=== PATIENT | female | born 1955 | race Caucasian/White ===

== ENCOUNTER 2016-10-02 18:54 | Emergency (ER) | payer BC ==
[2016-10-02] VITALS (7 sets, daily range): BP systolic 126–135; BP diastolic 71–78; PULSE 86–172; RESP 20; TEMP 97.6; O2SAT 95–100
[~2016-10-02] VITALS: Ht 175.3 cm; Wt 86.0 kg
[~2016-10-02 18:54] MED LIST: ASPI81TA82 PO; CALA180T PO; OMEG1000 PO; SIMV10 PO; SYNT100T PO; TIOT18I INH
[2016-10-02] MEDS ORDERED: SODIUM CHLORIDE 0.9% FLUSH 10 ML FLUSH IVF PRN (19:00)
[2016-10-02] MEDS ORDERED: ADENOSINE IV SOLN 3 MG/ML 2 ML VIAL ONE (19:02)
[2016-10-02] MEDS ORDERED: ONDANSETRON HCL 4 MG/2 ML VIAL ONE (19:04)
[2016-10-02] MEDS ORDERED: ADENOSINE IV SOLN 3 MG/ML 2 ML VIAL IV PUSH ONE (19:15)
[2016-10-02] MEDS ORDERED: ONDANSETRON HCL 4 MG/2 ML VIAL IV PUSH ONE (19:15)
[2016-10-02 19:25] LABS: AUTOMATED NEUTROPHIL # 8.4 TH/MM3 (1.8-7.7); BASOPHIL # 0.2 TH/MM3 (0-0.2); BASOPHIL % 1.2 % (0.0-2.0); EOSINOPHIL # 0.2 TH/MM3 (0-0.4); EOSINOPHIL % 1.4 % (0.0-4.0); HEMATOCRIT 39.4 % (35.0-46.0); LYMPH % 27.5 % (9.0-44.0); LYMPHOCYTE # 3.7 TH/MM3 (1.0-4.8); MEAN CELL VOLUME 73.4 FL (80.0-100.0); MEAN CORPUSCULAR HGB CONC 32.7 % (32.0-36.0); NEUT % 62.9 % (16.0-70.0); PLATELET COUNT 425 TH/MM3 (150-450); RED BLOOD COUNT 5.37 MIL/MM3 (4.00-5.30); RED CELL DISTRIBUTION WIDTH 16.1 % (11.6-17.2); WHITE BLOOD COUNT 13.4 TH/MM3 (4.0-11.0)
[2016-10-02 19:32] LABS: HEMO FLAGS DIFF FINAL
[2016-10-02 19:33] LABS: CHLORIDE 102 MEQ/L (98-107); POTASSIUM 3.7 MEQ/L (3.5-5.1); SODIUM (NA) 137 MEQ/L (136-145)
[2016-10-02 19:36] LABS: ANION GAP 12 MEQ/L (5-15); BICARBONATE 23.4 MEQ/L (21.0-32.0); MAGNESIUM 1.9 MG/DL (1.5-2.5)
--- NOTE | 2016-10-02 19:36 | PD ---
HPI Chief Complaint: Cardiac Complaint Time Seen by Provider: 18:56 Travel History International Travel<30 days: No Contact w/Intl Traveler<30days: No History of Present Illness HPI This is a 60-year-old female presents emergency department for evaluation of tachycardia and generalized fatigue. Patient states she was working outside today and began having rapid heartbeat. She states she has a history of SVT ever since the late 90s. She denies any chest pain shortness of breath. She states she feels like her mouth is dry and she has not been hydrating adequately today. She states that she tried several maneuvers at home including bearing down which were unsuccessful. PFSH Past Medical History Heart Rhythm Problems: Yes (SVT'S - X5 ) High Cholesterol: Yes COPD: Yes Hypertension: Yes (BORDERLINE ) Respiratory: Yes (CHEST TUBES X 2) Thyroid Disease: Yes Menopausal: Yes Past Surgical History Thoracic Surgery: Yes (SPONTANEOUS PNEUMOTHORAX X 5) Tonsillectomy: Yes (CHILDHOOD) Social History Alcohol Use: No Tobacco Use: Yes (1/2 PPD) Substance Use: No Allergies-Medications (Allergen,Severity, Reaction): Coded Allergies: No Known Allergies (Verified , 10/02/16) Reported Meds & Prescriptions Reported Meds & Active Scripts Active Reported Verapamil SR (Verapamil HCl) 180 Mg Cap 180 Mg PO DAILY Spiriva Handihaler (Tiotropium Inh) 18 Mcg Cap 18 Mcg INH DAILY 1 capsule = 18 mcg Zocor (Simvastatin) 10 Mg Tab 10 Mg PO DAILY [facility] (Hepzibah 3 Fatty Euyfu-Tkiaxs-Llnzynyqjb) 250-2.5-0.5 Mg Cap 1 Cap PO BID Synthroid (Levothyroxine Sodium) 112 Mcg Tab 112 Mcg PO DAILY Aspirin 81 Mg Chew 81 Mg CHEW EVERY OTHER DAY Review of Systems Except as stated in HPI: all other systems reviewed are Neg Physical Exam Narrative GENERAL: Well-developed well-nourished in no apparent distress SKIN: Focused skin assessment warm/dry. HEAD: Atraumatic. Normocephalic. EYES: Pupils equal and round. No scleral icterus. No injection or drainage. ENT: No nasal bleeding or discharge. Mucous membranes pink and moist. NECK: Trachea midline. No JVD. CARDIOVASCULAR: Regular rhythm with tachycardia.. No murmur appreciated. 2+ bilateral equal pulses in all 4 extremities. RESPIRATORY: No accessory muscle use. Clear to auscultation. Breath sounds equal bilaterally. GASTROINTESTINAL: Abdomen soft, non-tender, nondistended. Hepatic and splenic margins not palpable. MUSCULOSKELETAL: No obvious deformities. No clubbing. No cyanosis. No edema. NEUROLOGICAL: Awake and alert. No obvious cranial nerve deficits. Motor grossly within normal limits. Normal speech. PSYCHIATRIC: Appropriate mood and affect; insight and judgment normal. Data Data Last Documented VS Vital Signs Date Time Temp Pulse Resp B/P Pulse Ox O2 Delivery O2 Flow Rate FiO2 10/02/16 20:45 84 18 135/71 98 10/02/16 20:15 Room Air 10/02/16 19:50 2 10/02/16 18:55 97.6 Orders Electrocardiogram (10/02/16 18:56) Ckmb (Isoenzyme) Profile (10/02/16 18:56) Complete Blood Count With Diff (10/02/16 18:56) Comprehensive Metabolic Panel (10/02/16 18:56) Magnesium (Mg) (10/02/16 18:56) Prothrombin Time / Inr (Pt) (10/02/16 18:56) Act Partial Throm Time (Ptt) (10/02/16 18:56) Troponin I (10/02/16 18:56) Ecg Monitoring (10/02/16 18:56) Iv Access Insert/Monitor (10/02/16 18:56) Oximetry (10/02/16 18:56) Oxygen Administration (10/02/16 18:56) Sodium Chloride 0.9% Flush (Ns Flush) (10/02/16 19:00) Adenosine Inj (Adenocard Inj) (10/02/16 19:02) Ondansetron Inj (Zofran Inj) (10/02/16 19:04) Ondansetron Inj (Zofran Inj) (10/02/16 19:15) Adenosine Inj (Adenocard Inj) (10/02/16 19:15) Sodium Chlor 0.9% 1000 Ml Inj (Ns 1000 M (10/02/16 20:00) Electrocardiogram (10/02/16 19:07) Labs Laboratory Tests Test 10/02/16 18:55 White Blood Count 13.4 TH/MM3 Red Blood Count 5.37 MIL/MM3 Hemoglobin 12.9 GM/DL Hematocrit 39.4 % Mean Corpuscular Volume 73.4 FL Mean Corpuscular Hemoglobin 24.0 PG Mean Corpuscular Hemoglobin 32.7 % Concent Red Cell Distribution Width 16.1 % Platelet Count 425 TH/MM3 Mean Platelet Volume 8.1 FL Neutrophils (%) (Auto) 62.9 % Lymphocytes (%) (Auto) 27.5 % Monocytes (%) (Auto) 7.0 % Eosinophils (%) (Auto) 1.4 % Basophils (%) (Auto) 1.2 % Neutrophils # (Auto) 8.4 TH/MM3 Lymphocytes # (Auto) 3.7 TH/MM3 Monocytes # (Auto) 0.9 TH/MM3 Eosinophils # (Auto) 0.2 TH/MM3 Basophils # (Auto) 0.2 TH/MM3 CBC Comment DIFF FINAL Differential Comment Prothrombin Time 10.7 SEC Prothromb Time International 1.0 RATIO Ratio Activated Partial 30.1 SEC Thromboplast Time Sodium Level 137 MEQ/L Potassium Level 3.7 MEQ/L Chloride Level 102 MEQ/L Carbon Dioxide Level 23.4 MEQ/L Anion Gap 12 MEQ/L Blood Urea Nitrogen 9 MG/DL Creatinine 1.00 MG/DL Estimat Glomerular Filtration 56 ML/MIN Rate Random Glucose 181 MG/DL Calcium Level 8.9 MG/DL Magnesium Level 1.9 MG/DL Total Bilirubin 0.4 MG/DL Aspartate Amino Transf 18 U/L (AST/SGOT) Alanine Aminotransferase 31 U/L (ALT/SGPT) Alkaline Phosphatase 86 U/L Total Creatine Kinase 100 U/L Troponin I LESS THAN 0.02 NG/ML Total Protein 7.8 GM/DL Albumin 4.1 GM/DL MDM Medical Decision Making Medical Screen Exam Complete: Yes Emergency Medical Condition: Yes Interpretation(s) 1899: EKG shows supraventricular tachycardia at a rate of 174, normal axis and normal R-wave progression. 1905: Attempting to run rhythm strip while patient being converted however repeat EKG was performed instead shows supraventricular tachycardia rate of 170. No other changes. EKG repeated in 1906, sinus tachycardia rate of 112, normal axis normal R-wave progression. Incomplete right bundle-branch block with an RSR prime pattern in V1 and V2. QRS duration is 99, intervals otherwise within normal limits. No concerning ST segment changes or T-wave changes. The borderline EKG. Comparison to 08/10/2014 shows no change. Differential Diagnosis Recurrent SVT, atrial fibrillation RVR, ventricular tachycardia, ACS seems unlikely, AMI unlikely, dehydration. Narrative Course Patient was roomed in the emergency department, found to be in SVT at a rate of 170-180. After IV was established the patient was given 6 of adenosine IV by rapid push. The patient had successful cardioversion to normal sinus rhythm, EKG which was repeated shows a nonischemic EKG. Patient will be observed in the emergency department basic labs. Basic labs are reassuring, patient was observed for some time in the emergency department and was feeling much better and wanted to go home. Discussed need for follow-up with a nurse reviewer that she is established with Dr. Ríos. Discussed return to ED criteria follow-up with a primary care physician as well. She stable for discharge at this time. Diagnosis Primary Impression: SVT (supraventricular tachycardia) Referrals: Arnaldo Ríos MD Disposition: 01 DISCHARGE HOME Condition: Stable Brayan Brothers MD Oct 02, 2016 19:36
[2016-10-02 19:37] LABS: BLOOD UREA NITROGEN 9 MG/DL (7-18)
[2016-10-02 19:38] LABS: APTT (PATIENT) 30.1 SEC (24.3-30.1); PROTHROMBIN TIME - PATIENT 10.7 SEC (9.8-11.6)
[2016-10-02 19:39] LABS: ALT (GPT) 31 U/L (10-53); AST (GOT) 18 U/L (15-37)
[2016-10-02 19:40] LABS: GLOMERULAR FILTRATION RATE 56 ML/MIN (>89)
[2016-10-02 19:41] LABS: TOTAL BILIRUBIN ADULT 0.4 MG/DL (0.2-1.0)
[2016-10-02 19:42] LABS: ALKALINE PHOSPHATASE 86 U/L (45-117)
[2016-10-02] MEDS ORDERED: SODIUM CHLOR 0.9% 1000 ML INJ 1,000 ML IV ONE (20:00)
[2016-10-02 20:02] LABS: CREATINE KINASE 100 U/L (26-192)
[2016-10-02] MEDS ORDERED: ASPI81CH CHEW (20:17)
[2016-10-02] MEDS ORDERED: SYNT112T PO (20:18)
[2016-10-02] MEDS ORDERED: SPIRCAP INH (20:19)
[2016-10-02] MEDS ORDERED: ZOCO10TA PO (20:19)
[2016-10-02] MEDS ORDERED: OMEGCAP29 PO (20:19)
[2016-10-02] MEDS ORDERED: VERA180C3 PO (20:20)
--- NOTE | 2016-10-03 12:21 | EKG ---
Date Performed: 10/02/2016 Time Performed: 19:07:24 PTAGE: 60 years EKG: SINUS TACHYCARDIA INCOMPLETE RIGHT BUNDLE BRANCH BLOCK MODERATE ST DEPRESSION ABNORMAL ECG PREVIOUS TRACING : 10/02/2016 19.00 COMPARED WITH PREVIOUS EKG SVT IS NO LONGER PRESENT DOCTOR: Rachid Patten Interpretating Date/Time 10/03/2016 12:18:17
--- NOTE | 2016-10-03 12:22 | EKG ---
Date Performed: 10/02/2016 Time Performed: 19:00:21 PTAGE: 60 years EKG: SUPRAVENTRICULAR TACHYCARDIA INCOMPLETE RIGHT BUNDLE BRANCH BLOCK MODERATE ST DEPRESSION AB NORMAL ECG PREVIOUS TRACING : 08/10/2014 16.17 COMPARED TO THE PREVIOUS EKG SUPRAVENTRICULAR TACHYCARDIAS NEW DOCTOR: Rachid Patten Interpretating Date/Time 10/03/2016 12:18:44
== END 2016-10-02 20:45 | disposition home or self-care (01) ==
LOC: PHED 18:54
DX: I47.1 Supraventricular tachycardia (principal); E78.5 Hyperlipidemia, unspecified; E07.9 Disorder of thyroid, unspecified
CPT/HCPCS: 80053; 82550; 83735; 84484; 85025; 85610; 85730; 93005; 96365; 96375; 99283; J0153; J2405; J7030

== ENCOUNTER 2016-12-07 08:32 | Day surgery (SDC) | payer BC ==
[~2016-12-07] VITALS: Ht 175.3 cm; Wt 86.0 kg
[~2016-12-07 08:32] MED LIST changes: +ASPI81CH CHEW; -ASPI81TA82 PO; -CALA180T PO; -OMEG1000 PO; +OMEGCAP29 PO; -SIMV10 PO; +SPIRCAP INH; -SYNT100T PO; +SYNT112T PO; -TIOT18I INH; +VERA180C3 PO; +ZOCO10TA PO
[2016-12-07] MEDS ORDERED: SODIUM CHLORID 0.9% 500 ML IV PRN (09:00)
[2016-12-07] MEDS ORDERED: POVIDONE IODINE 5% (ANTISEPSIS KIT) 4 APPLICATIONS EACH NARE PRN (09:00)
[2016-12-07] MEDS ORDERED: CHLORHEXIDINE GLUCONATE 2 % 1 PACK (2 CLOTHS) TOPICAL PRN (09:00)
[2016-12-07] MEDS ORDERED: INSULIN HUMAN REGULAR 1,000 UNITS/10 ML VIAL SQ PRN (09:00)
[2016-12-07] MEDS ORDERED: LACTATED RINGER'S 1000 ML IV PRN (09:00)
[2016-12-07] MEDS ORDERED: SODIUM CHLORID 0.9% 500 ML INJ 500 ML IV SCH (09:00)
[2016-12-07] MEDS ORDERED: METOPROLOL TARTRATE 25 MG TAB PO PRN (09:00)
[2016-12-07] MEDS ORDERED: LORazepam 1 MG TAB SL SCH (09:00)
[2016-12-07 09:14] VITALS: BP 158/90; PULSE 83; RESP 17; TEMP 99.6; O2SAT 95
[2016-12-07] MEDS ORDERED: MECL-62 PO (09:22)
[2016-12-07 09:34] LABS: AUTOMATED NEUTROPHIL # 4.8 TH/MM3 (1.8-7.7); BASOPHIL # 0.1 TH/MM3 (0-0.2); BASOPHIL % 0.7 % (0.0-2.0); EOSINOPHIL # 0.1 TH/MM3 (0-0.4); EOSINOPHIL % 1.8 % (0.0-4.0); HEMATOCRIT 38.3 % (35.0-46.0); HEMO FLAGS DIFF FINAL; LYMPH % 25.5 % (9.0-44.0); LYMPHOCYTE # 1.9 TH/MM3 (1.0-4.8); MEAN CELL VOLUME 72.9 FL (80.0-100.0); MEAN CORPUSCULAR HEMOGLOBIN 23.5 PG (27.0-34.0); MEAN CORPUSCULAR HGB CONC 32.3 % (32.0-36.0); MONO % 7.2 % (0.0-8.0); NEUT % 64.8 % (16.0-70.0); PLATELET COUNT 417 TH/MM3 (150-450); RED BLOOD COUNT 5.25 MIL/MM3 (4.00-5.30); RED CELL DISTRIBUTION WIDTH 17.4 % (11.6-17.2); WHITE BLOOD COUNT 7.5 TH/MM3 (4.0-11.0)
[2016-12-07 09:53] LABS: APTT (PATIENT) 29.7 SEC (24.3-30.1); INTERNATIONAL NORMALIZED RATIO 0.9 RATIO; PROTHROMBIN TIME - PATIENT 10.3 SEC (9.8-11.6)
[2016-12-07 09:57] LABS: BICARBONATE 22.7 MEQ/L (21.0-32.0); POTASSIUM 3.9 MEQ/L (3.5-5.1)
[2016-12-07] MEDS ORDERED: ISOPROTERENOL HCL 1 MG/5 ML AMP ONE (16:18)
[2016-12-07] MEDS ORDERED: oxyCODONE/ACETAMINOPHEN 5 MG/325 MG TAB PO PRN ×2 (16:45)
[2016-12-07] MEDS ORDERED: METOCLOPRAMIDE HCL 10 MG/2 ML VIAL IV PRN (16:45)
[2016-12-07] MEDS ORDERED: BACITRACIN OINT 0.9 GM PKT TOP ONE (16:45)
[2016-12-07] MEDS ORDERED: SODIUM CHLOR 0.9% 250 ML INJ 250 ML IV PRN (16:45)
[2016-12-07] MEDS ORDERED: LIDOCAINE HCL 1% 50 ML VIAL INFIL PRN (16:45)
[2016-12-07] MEDS ORDERED: LORazepam 2 MG/ML VIAL IV PRN (16:45)
[2016-12-07] MEDS ORDERED: ONDANSETRON HCL 4 MG/2 ML VIAL IV PRN (16:45)
[2016-12-07] MEDS ORDERED: ATROPINE SULFATE 1 MG/ML VIAL IV PRN (16:45)
[2016-12-07] MEDS ORDERED: MIDAZOLAM HCL 2 MG/2 ML VIAL ONE (17:07)
--- NOTE | 2016-12-07 17:26 | CATHPROC ---
[employer] HIS Report Study Information Study Number Admission Scheduled Start Study Start [id number] Dec 07 2016 8:32AM 12/07/2016 Dec 07 2016 2:44PM [place] [facility] Electrophysiology Study Admit Source Facility Department Other [facility] Physician and Clinical Staff Initial Yayo Prater Coil Inspector Flora Garcia,EDUARDO Other Anesthesia, FITNESS MANAGEMENT DIRECTOR Recorder Emily Galdamez RN Procedures Performed Procedure Cardioversion Equipment Time Fitness Management Director Description Size Mfg Part Number Used/Scraped [id number] 14:47 [employer] PACK, CCL CUSTOM * Used *[id number] 14:47 Detectent PACER AVENDAÑO, LIMB * 2530 *[id number] Used [id number] 14:47 Revo Round BLANKET,WARM AIR CCL * Used *[id number] 16:07 [employer] MEDICAL CATHETER, JSN, QUAD FR 5 Used *[id number] 16:07 [employer] MED[employer] CATHETER, JSN, QUAD FR 5 Used *[id number] 149218 16:07 [employer] MED[employer] CATHETER, JSN, QUAD FR 5 Used *[id number] 16:07 [employer] MED[employer] CATHETER, JSN, QUAD FR 5 Used *[id number] 14:47 [employer] MEDICAL ELECTRODE KIT, BRE X SURFACE * [id number] Used [id number] 16:07 [employer] MED[employer] SHEATH, EPS, FR5 FAST CATH FR 5 Used *[id number] [id number] 16:07 [employer] MED[employer] SHEATH, EPS, FR5 FAST CATH FR 5 Used *[id number] 16:10 [employer] MED[employer] SHEATH, EPS, FR5 FAST CATH FR 5 Used *[id number] 16:07 [employer] MED[employer] SHEATH, EPS, FR6 FAST CATH FR 6 [id number] Used 16:13 [employer] MED[employer] SHEATH, EPS, FR8 FAST CATH FR 8 [id number] Used [facility], ELECTROSURGICAL 14:47 * [id number] *[id number] Used SURGICAL GROUNDING (BLUE) History: Allergies Allergy Reaction No Known Allergies Penicillins GI UPSET History: Risk Factors Hypertension Dyslipidemia Yes Yes Labs Hgb (g/dl) Hct (%) RBC (MIL/MM3) WBC (l/cumm) Platelets (thousands) 11.60-17.00 35.00-51.00 4.00-5.90 4.00-11.00 150.00-450.00 12.0 38 5.2 7.5 417 Glucose (mg/dl) BUN (mg/dl) Creatinine (mg/dl) BUN:Creatinine (1:x) 74.00-106.00 7.00-18.00 0.50-1.30 10.00-20.00 111 10 0.6 16.7 Na (meq/l) K (meq/l) 136.00-145.00 3.50-5.10 139 3.9 INR (PTT:PT) 0.90-1.10 0.9 Medication Medication Total Dose (Bolus/Oral) Medication Total Dosage/Unit 1% XYLOCAINE 40 mL Medications (Bolus/Oral) Medication Time Given Dosage/Unit Administered By Reason 1% XYLOCAINE 12/07/2016 4:08:34 PM 20 mL Yayo Rosales 20 mL 1% XYLOCAINE given in lab by Yayo Rosales in Left Groin via Subcutaneous. 1% XYLOCAINE 12/07/2016 4:10:39 PM 20 mL Yayo Rosales 20 mL 1% XYLOCAINE given in lab by Yayo Rosales in Right Groin via Subcutaneous. Medication (Drip) Medication Time Given Dosage/Unit Concentration/Unit Diluent (ml) Solution ISUPREL 12/07/2016 4:20:22 PM 2 mcg/min 1 mg 250 NaCl .9 2 mcg/min ISUPREL given in lab by NISA Grimaldo via Peripheral IV. Pump/Drip Flow = 30 ml/hr using NaCl .9 with a concentration of 1 mg in 250 ml. Ordered by Yayo Rosales. Reason: As per physicians verbal order. Initial Case Assessment Cardiovascular HR Rhythm NIBP Chest Pain 69 sr 162/75 0 Edema Present Skin color Skin None Normal Warm Dry Circulatory - Right Pulses Dorsalis Pedis Posterior Tibial 2 3 Scale (0,1,2,3,4,d) Circulatory - Left Pulses Dorsalis Pedis Posterior Tibial 1 3 Scale (0,1,2,3,4,d) Circulatory - Lower Extremities Color Lower Right Color Lower Left Normal Normal Neurological State Oriented to time-place- Alert Moves all extremities person Respiration - General Respiration Rate SpO2 (%) (B/min) 20 100 Final Case Assessment Cardiovascular HR Rhythm NIBP Chest Pain 79 sr 112/58 0 Edema Present Skin color Skin None Normal Warm Dry Circulatory - Right Pulses Posterior Tibial 3 Scale (0,1,2,3,4,d) Circulatory - Left Pulses Posterior Tibial 3 Scale (0,1,2,3,4,d) Circulatory - Lower Extremities Color Lower Right Color Lower Left Normal Normal Neurological State Lethargic Moves all extremities Respiration - General Respiration Rate SpO2 (%) O2 (lpm) (B/min) 18 100 6 Chronological Log Time Study Chronological Log 15:32:34 Patient arrived via Bed. 15:32:43 Patient Name, D.O.B, / Armband Verified By R.N. 15:32:45 Anesthesia at bedside. Assumes care of patient. James 15:33:06 Consent signed by the physician and the patient and verified by the [employer] [facility] staff. 15:34:30 Pre-op and post- op instructions given; patient acknowledges understanding of instructions . 15:34:34 Verbal Stimulation=2 Physical Stimulation=2 Airway=2 Respiration=2 TOTAL=8. (0=absent, 1=l imited, 2=present) 15:35:52 Patient has been NPO for More than 6Hrs. 15:35:56 Skin Breakdown- none per pt 15:36:02 Patient Warmer Placed on the Table. 15:36:07 Disposable Defibrillator Pads Placed On Patient. 15:36:09 Cullen Prominences Protected 15:37:12 A # 20 IV was noted in the Antecubital (right). Grade = 0 0.9ns kvo 15:37:18 A # 20 IV was noted in the Forearm (left). Grade = 0 0.9ns kvo 15:38:24 History and physical on the chart or being dictated. 15:46:33 Table restraints applied according to hospital policy Assessment: Initial Case, HR=69 BPM, Rhythm=sr, ESSP=747/75 mmhg, Chest Pain=0, Edema=None, Col or=Normal, Skin = Warm, Dry Right Pulses: Artur Ped=2, Post Tib=3 Left Pulses: Artur Ped=1, Post Tib=3 15:52:00 Lower Right Extremities: Color=Normal Lower Left Extremities: Color=Normal Neurological: State=Alert, Ox3, [place] Respiration: Resp=20 B/min, AxU4=403 % 16:00:00 Bilateral groins prepped with 2% chlorhexidine, and with a 3 min. waiting time. 16:02:36 paged 16:02:39 arrived. 16:03:53 Reference ECG taken Time Out. Correct patient, procedure, procedure equipment, site and side verified with physicia n present. Time 16:08:00 concurred by MD, individual staff and FITNESS MANAGEMENT DIRECTOR. Time Out #2 - Consents verified, patient in correct position, all results are labled and displa yed, safety precautions 16:08:15 taken, antibiotics administered. Time out concurred by MD, individual staff and FITNESS MANAGEMENT DIRECTOR in procedu re 16:08:29 Case Start 16:08:34 20 mL 1% XYLOCAINE given in lab by Yayo Rosales in Left Groin via Subcutaneous. 16:08:43 Vascular access was obtained in the Fem Vein (left). 16:08:46 Vascular access was obtained in the Fem Vein (left). 16:08:52 Vascular access was obtained in the Fem Vein (left). 16:09:11 Vascular access was obtained in the Fem Vein (left). 16:09:15 A SHEATH, EPS, FR5 FAST CATH FR 5 was advanced into the Fem Vein (left) using the Modified Seldinger technique. 16:09:21 A SHEATH, EPS, FR5 FAST CATH FR 5 was advanced into the Fem Vein (left) using the Modified Seldinger technique. 16:09:24 A SHEATH, EPS, FR5 FAST CATH FR 5 was advanced into the Fem Vein (left) using the Modified Seldinger technique. 16:10:39 20 mL 1% XYLOCAINE given in lab by Yayo Rosales in Right Groin via Subcutaneous. 16:11:49 Vascular access was obtained in the Fem Vein (right). 16:11:52 Vascular access was obtained in the Fem Vein (right). 16:11:53 A SHEATH, EPS, FR6 FAST CATH FR 6 was advanced into the Fem Art (right) using the Modified Seldinger technique. 16:13:07 A SHEATH, EPS, FR8 FAST CATH FR 8 was advanced into the Fem Vein (right) using the Modified Seldinger technique. A CATHETER, JSN, QUAD FR 5 was advanced vis Fem Vein (left) and placed in the CS. Placement was visually 16:13:21 confirmed under fluoroscopy. A CATHETER, JSN, QUAD FR 5 was advanced vis Fem Vein (left) and placed in the HIS. Placement wa s visually 16::29 confirmed under fluoroscopy. A CATHETER, JSN, QUAD FR 5 was advanced vis Fem Vein (left) and placed in the RVA. Placement wa s visually 16:13:34 confirmed under fluoroscopy. A CATHETER, JSN, QUAD FR 5 was advanced vis Fem Vein (right) and placed in the HRA. Placement w as visually 16:13:49 confirmed under fluoroscopy. 16:14:08 EPS in progress. 2 mcg/min ISUPREL given in lab by Anesthesia, FITNESS MANAGEMENT DIRECTOR via Peripheral IV. Pump/Drip Flow = 30 ml/hr using NaCl .9 with 16:20:22 a concentration of 1 mg in 250 ml. Ordered by Yayo Rosales. Reason: As per physicians verbal o rder. 16:21:59 Isuprel off 16:32:57 ECG rhythm of AF noted. Patient cardioverted at 200 joules. Success synch 16:35:16 Catheter(s) removed without difficulty 16:41:33 Sheaths removed; pressure applied to right groin access sites by DC snd left groin access s ites by MM. Assessment: Final Case, HR=79 BPM, Rhythm=sr, OLDT=486/58 mmhg, Chest Pain=0, Edema=None, [place] r=Normal, Skin = Warm, Dry Right Pulses: Post Tib=3 Left Pulses: Post Tib=3 16:41:57 Lower Right Extremities: Color=Normal Lower Left Extremities: Color=Normal Neurological: State=Lethargic, [place] Respiration: Resp=18 B/min, UaN3=752 %, O2=6 lpm 16:45:49 Case End 16:46:31 No case complications noted. 16:46:38 Cine recording checked. 17:06:15 Patient moved to stretcher 17:07:00 Groin sites wnl. No bleeding, no ozing, no hematomas. 17:08:00 Defibrillator and ground pads removed. Skin intact. End Study - Contrast Media Used In Study Contrast Total Opened (mL) Total Used (mL) Total Wasted (mL) Unspecified 0 0 0 End Study - Maximum Contrast Load Max Contrast Load (mL) 715.2 End Study - Radiation Exposure Fluoro Time (minutes) 1.6 End Study - Sheaths Sheaths Pulled By Sheath Hold Time (min) Flora Garcia 15 End Study - Patient Disposition Complications Transferred To Interventional Outcome No Telemetry Bed successful
[2016-12-07] MEDS ORDERED: DO NOT ADM ANY ANTICOAGULANT DRUGS PRN (18:15)
[2016-12-07 21:00] VITALS: PULSE 58
[2016-12-07] MEDS ORDERED: MECLIZINE HCL 25 MG TAB PO PRN (21:30)
[2016-12-07] MEDS ORDERED: PRAVASTATIN SOD 20 MG TAB PO ONE (21:45)
[2016-12-07 22:00] VITALS: PULSE 58
[2016-12-07 23:00] VITALS: PULSE 54
[2016-12-08] VITALS (9 sets, daily range): BP systolic 123; BP diastolic 69; PULSE 56–77; RESP 16; TEMP 97.6; O2SAT 95
[2016-12-08] MEDS ORDERED: LEVOTHYROXINE SODIUM 112 MCG TAB PO SCH (06:00)
--- NOTE | 2016-12-08 08:16 | PD.CARD.PN ---
Subjective Subjective Remarks Feels okay. No complaints. Objective Medications Current Medications Medications (Trade) Dose Ordered Sig/Ashley Route Start Time Stop Time Status Last Admin Sodium Chloride 500 ml @ 30 mls/hr [id number] IV 12/07/16 09:00 (Ativan) 1 mg CATEGORY ANALYST SL 12/07/16 09:00 12/10/16 08:59 Lactated Ringer's 1,000 ml @ 30 mls/hr Q24H PRN IV 12/07/16 09:00 12/10/16 08:59 Sodium Chloride 500 ml @ 30 mls/hr [id number] PRN IV 12/07/16 09:00 12/10/16 08:59 (Lopressor) 25 mg CATEGORY ANALYST PRN PO 12/07/16 09:00 12/10/16 08:59 (Betadine 5% Antisepsis Kit) 1 applic CATEGORY ANALYST PRN EACH NARE 12/07/16 09:00 12/10/16 08:59 (Chlorhexidine 2% Cloth) 3 pack CATEGORY ANALYST PRN TOPICAL 12/07/16 09:00 12/10/16 08:59 (NovoLIN R INJ) See Protocol Table ... CATEGORY ANALYST PRN SQ 12/07/16 09:00 12/10/16 08:59 (Percocet 5-325 Mg) 1 tab Q4H PRN PO 12/07/16 16:45 (Percocet 5-325 Mg) 2 tab Q4H PRN PO 12/07/16 16:45 (Ativan Inj) 0.5 mg UNSCH PRN IV 12/07/16 16:45 12/08/16 16:44 (Atropine Inj) 0.5 mg UNSCH PRN IV 12/07/16 16:45 Sodium Chloride 250 ml @ 500 mls/hr ONCE PRN IV 12/07/16 16:45 12/08/16 16:44 (Zofran Inj) 4 mg Q4H PRN IV 12/07/16 16:45 12/07/16 17:55 (Xylocaine 1% Inj (50 ml)) 10 ml UNSCH PRN INFIL 12/07/16 16:45 12/08/16 16:44 Miscellaneous Information ALL NURSING DEPARTME... UNSCH PRN .XX 12/07/16 18:15 12/08/16 18:14 (Spiriva Inh) 18 mcg DAILY INH 12/08/16 09:00 (Isoptin Sr) 180 mg DAILY PO 12/08/16 09:00 (Aspirin Chew) 81 mg EVERY OTHER DAY PO 12/08/16 09:00 (Synthroid) 112 mcg DAILY@0600 PO 12/08/16 06:00 12/08/16 05:55 (Pravachol) 20 mg DAILY PO 12/08/16 09:00 Vital Signs / I&O Vital Signs Date Time Temp Pulse Resp B/P (MAP) Pulse Ox O2 Delivery O2 Flow Rate FiO2 12/08/16 06:00 60 12/08/16 05:00 57 12/08/16 04:00 77 12/08/16 03:00 62 12/08/16 02:00 59 12/08/16 01:00 56 12/08/16 00:00 58 12/07/16 23:00 54 12/07/16 22:00 58 12/07/16 21:00 58 12/07/16 17:15 96 Room Air 12/07/16 09:14 99.6 83 17 158/90 (112) 95 I/O 12/07/16 12/07/16 12/07/16 12/08/16 12/08/16 12/08/16 06:59 14:59 22:59 06:59 14:59 22:59 Intake Total 360 ml Output Total 700 ml Balance -340 ml Intake Oral 360 ml Output Urine Total 700 ml # Bowel Movements 0 Physical Exam GENERAL: Well-nourished, well-developed patient. SKIN: Warm and dry. Groin site soft without bruising or bleeding. HEAD: Normocephalic. EYES: No scleral icterus. No injection or drainage. NECK: Supple, trachea midline. No JVD or lymphadenopathy. CARDIOVASCULAR: Regular rate and rhythm without murmurs, gallops, or rubs. RESPIRATORY: Breath sounds equal bilaterally. No accessory muscle use. GASTROINTESTINAL: Abdomen soft, non-tender, nondistended. EXTREMITIES: No cyanosis, or edema. NEUROLOGICAL: Awake, alert, and oriented x 3. Non-focal. Assessment and Plan Problem List: (1) Atrial fibrillation ICD Codes: I48.91 - Unspecified atrial fibrillation Status: Acute Plan: Patient underwent EP study 822 with findings of paroxysmal atrial fibrillation. She will require anticoagulation with Eliquis prior to undergoing atrial fibrillation ablation. Per my discussion with Dr. Rosales Eliquis 5 mg twice a day will be initiated today and she will be contacted by date on the heart group office to schedule follow-up, procedure and provide anticoagulation and preprocedural teaching. She will be discharged home today and follow-up scheduled through [facility] heart group office per my discussion with Dr. Rosales. Discussed Condition With Discussed with Dr. Rosales, patient, RN. Problem Qualifiers (1) Atrial fibrillation: Qualified Codes: I48.0 - Paroxysmal atrial fibrillation Brandee Hay Dec 08, 2016 08:16
[2016-12-08] MEDS ORDERED: APIX5TAB PO (08:19)
[2016-12-08] MEDS ORDERED: VERAPAMIL HCL 180 MG SUSTAINED RELEASE TAB PO SCH (09:00)
[2016-12-08] MEDS ORDERED: PRAVASTATIN SOD 20 MG TAB PO SCH (09:00)
[2016-12-08] MEDS ORDERED: TIOTROPIUM BROMIDE 18 MCG INH INH SCH (09:00)
[2016-12-08] MEDS ORDERED: ASPIRIN 81 MG CHEW TAB PO SCH (09:00)
--- NOTE | 2016-12-08 19:36 | EKG ---
Date Performed: 12/08/2016 Time Performed: 04:47:56 PTAGE: 61 years EKG: Sinus bradycardia Prolonged QT interval Anterior T wave changes are nonspecific Borderline ECG PREVIOUS TRACING : 12/07/2016 21.59 Compared to prior tracing no significant change DOCTOR: Fuentes Mcclain Interpretating Date/Time 12/08/2016 19:35:57
--- NOTE | 2016-12-08 19:44 | EKG ---
Date Performed: 12/07/2016 Time Performed: 21:59:18 PTAGE: 61 years EKG: Sinus bradycardia Prolonged QT interval rSr'(V1) - probable normal variant Anterior T wave changes are nonspecific Borderline ECG PREVIOUS TRACING : 12/07/2016 09.19 Compared to prior tracing no significant change DOCTOR: Fuentes Mcclain Interpretating Date/Time 12/08/2016 19:43:25
--- NOTE | 2016-12-08 20:18 | EKG ---
Date Performed: 12/07/2016 Time Performed: 09:19:20 PTAGE: 61 years EKG: Sinus rhythm Incomplete RBBB Borderline ECG PREVIOUS TRACING : 10/02/2016 19.07 Compared to prior tracing no significant change DOCTOR: Fuentes Mcclain Interpretating Date/Time 12/08/2016 20:17:05
--- NOTE | 2017-01-04 12:49 | MA ---
cc: CACHORRO CHING M.D., HANSCY M.D. DATE: 12/07/2016 PROCEDURE Electrophysiology study, CS cannulation and cardioversion. INDICATION Mrs. Petersen is a 61-year-old female with recurrent episodes of tachyarrhythmia, symptomatic, referred for electrophysiology study and ablation. The risks, the nature and the benefit of the procedure were clearly stated to her. The risks include pneumothorax, cardiac perforation, stroke and even . The patient understood and agreed to proceed. DETAILS OF PROCEDURE After written informed consent was obtained, the patient was brought to the EP lab where she was prepped and draped in the usual sterile fashion. Conscious sedation was initiated and maintained throughout the procedure by the anesthesiologist. Once sedation was verified, the right and left inguinal area was anesthetized with 2% Xylocaine. Using the modified Seldinger technique, the left femoral vein was cannulated on three occasions and three guidewires were advanced. Over the wire three 5 Argentine Hemaquets were advanced. Then the right femoral vein was cannulated on two occasions and two guidewires were advanced. Over the wires a 6 and an 8 Argentine Hemaquet were advanced. Then under fluoroscopic guidance through the 5 and 6 Argentine Hemaquets, four 5 Argentine Phill curved quadripolar electrophysiology catheters were advanced and positioned on the His, upper right atrium, coronary sinus and right ventricular apex. Basic intervals were measured. They were within normal limits. At this point atrial pacing protocol consisted of incremental atrial pacing as well as programmed stimulation with 110 cycle length and up to one extrastimuli delivered. During atrial pacing protocol the patient went into atrial fibrillation on multiple occasions. The patient had to be defibrillated and converted into sinus rhythm. Then ventricular pacing protocol was performed. There was VA conduction. At that point atrial pacing protocol was repeated and the patient went into atrial fibrillation again. The procedure was complete. All catheters were removed. The patient is going to be transferred to the recovery room. Anticoagulation will be initiated and the patient will be scheduled for atrial fibrillation ablation. No incident report. The patient tolerated the procedure. Blood loss minimal. FINDINGS 1. Electrocardiogram: At baseline the patient was in a sinus rhythm. Post procedure patient is seen in sinus rhythm. 2. Basic interval: Basic cycle length was around 840, AH at 90 and HV around 58 milliseconds. 3. Atrial pacing protocol: Wenckebach of the node was not reached. The patient went into atrial fibrillation on multiple occasions. 4. Ventricular pacing protocol. There was VA. No tachyarrhythmia was induced. CONCLUSIONS 1. Positive electrophysiology study for atrial fibrillation. 2. Successful cardioversion. COMMENT/RECOMMENDATION Mrs. ePtersen was having tachyarrhythmia. The 12-lead EKG corresponds with her clinical tachyarrhythmia. Most likely she was having atrial fibrillation that was very organized. She will require cardioversion at this point. Because of her longstanding tachyarrhythmia she will need anticoagulation and then atrial fibrillation ablation will be scheduled. The case will be discussed with the patient. Yayo Rosales MD HS/BT /11:38 AM /12:34 PM
== END 2016-12-08 10:11 | disposition home or self-care (01) ==
LOC: HCAT 08:32 → HDIC 08:33 → HCIN 21:00 → HCAT 12-08 10:11
PROVIDERS: ATTEND Internal Medicine Interventional Cardiology
DX: I48.91 Unspecified atrial fibrillation (principal); I47.1 Supraventricular tachycardia; I45.10 Unspecified right bundle-branch block; I45.81 Long QT syndrome; I10 Essential (primary) hypertension; E78.5 Hyperlipidemia, unspecified; J44.9 Chronic obstructive pulmonary disease, unspecified; F17.210 Nicotine dependence, cigarettes, uncomplicated; E66.9 Obesity, unspecified; Z68.28 Body mass index [BMI] 28.0-28.9, adult; Z79.82 Long term (current) use of aspirin; Z79.51 Long term (current) use of inhaled steroids; Z79.899 Other long term (current) drug therapy
CPT/HCPCS: 80048; 85025; 85610; 85730; 86850; 86900; 86901; 92960; 93005; 93620; 93623; C1730; C1732; J2250; J2405; J3010

== ENCOUNTER 2017-02-01 06:27 | Day surgery (SDC) | payer BC ==
[~2017-02-01] VITALS: Ht 175.3 cm; Wt 85.6 kg
[2017-02-01] VITALS (11 sets, daily range): BP systolic 135–160; BP diastolic 77–90; PULSE 71–85; RESP 16–20; TEMP 98.1–98.6; O2SAT 97–99
[~2017-02-01 06:27] MED LIST changes: +APIX5TAB PO; +MECL-62 PO
[2017-02-01] MEDS ORDERED: METOPROLOL TARTRATE 25 MG TAB PO PRN (07:00)
[2017-02-01] MEDS ORDERED: LORazepam 1 MG TAB SL SCH (07:00)
[2017-02-01] MEDS ORDERED: SODIUM CHLORID 0.9% 500 ML IV PRN (07:00)
[2017-02-01] MEDS ORDERED: CHLORHEXIDINE GLUCONATE 2 % 1 PACK (2 CLOTHS) TOPICAL PRN (07:00)
[2017-02-01] MEDS ORDERED: SODIUM CHLORID 0.9% 500 ML INJ 500 ML IV SCH (07:00)
[2017-02-01] MEDS ORDERED: LEVOFLOXACIN 500 MG PREMIX INJ 100 ML IV SCH (07:00)
[2017-02-01] MEDS ORDERED: LACTATED RINGER'S 1000 ML IV PRN (07:00)
[2017-02-01] MEDS ORDERED: POVIDONE IODINE 5% (ANTISEPSIS KIT) 4 APPLICATIONS EACH NARE PRN (07:00)
[2017-02-01] MEDS ORDERED: INSULIN HUMAN REGULAR 1,000 UNITS/10 ML VIAL SQ PRN (07:00)
[2017-02-01 07:14] LABS: AUTOMATED NEUTROPHIL # 4.8 TH/MM3 (1.8-7.7); BASOPHIL # 0.1 TH/MM3 (0-0.2); EOSINOPHIL # 0.2 TH/MM3 (0-0.4); EOSINOPHIL % 2.7 % (0.0-4.0); HEMATOCRIT 37.5 % (35.0-46.0); HEMO FLAGS DIFF FINAL; LYMPH % 32.4 % (9.0-44.0); LYMPHOCYTE # 2.8 TH/MM3 (1.0-4.8); MEAN CELL VOLUME 73.3 FL (80.0-100.0); MEAN CORPUSCULAR HEMOGLOBIN 24.8 PG (27.0-34.0); MEAN CORPUSCULAR HGB CONC 33.8 % (32.0-36.0); NEUT % 55.9 % (16.0-70.0); PLATELET COUNT 378 TH/MM3 (150-450); RED BLOOD COUNT 5.12 MIL/MM3 (4.00-5.30); RED CELL DISTRIBUTION WIDTH 17.1 % (11.6-17.2); WHITE BLOOD COUNT 8.5 TH/MM3 (4.0-11.0)
[2017-02-01 07:25] LABS: APTT (PATIENT) 29.3 SEC (24.3-30.1); INTERNATIONAL NORMALIZED RATIO 0.9 RATIO; PROTHROMBIN TIME - PATIENT 10.3 SEC (9.8-11.6)
[2017-02-01 07:34] LABS: BICARBONATE 24.2 MEQ/L (21.0-32.0)
[2017-02-01] MEDS ORDERED: SODIUM CHLOR 0.9% 250 ML INJ 250 ML ONE (08:39)
[2017-02-01] MEDS ORDERED: HEPARIN-D5W 25,000 U/250 ML 250 ML ONE (08:39)
[2017-02-01] MEDS ORDERED: ISOPROTERENOL HCL 1 MG/5 ML AMP ONE (08:39)
[2017-02-01] MEDS ORDERED: HEPARIN SODIUM - IV 10,000 UNITS/10 ML VIAL ONE (08:39)
[2017-02-01] MEDS ORDERED: PROTAMINE SULFATE 50 MG/5 ML VIAL ONE (10:44)
--- NOTE | 2017-02-01 11:01 | CATHPROC ---
[facility] HIS Report Study Information Study Number Admission Scheduled Start Study Start [id number] Feb 01 2017 6:27AM 02/01/2017 Feb 01 2017 7:47AM [place] Service Electrophysiology Study Admit Source Facility Department Other [facility] Physician and Clinical Staff Initial Yayo Prater Bag Loader Flora Gacria,EDUARDO Other Anesthesia, CARDIOLOGY NURSE PRACTITIONER Other Emily Galdamez,RN Other Jt Farnsworth,RT(R) Recorder Sakshi Siddiqui,BSRN Scrub Aidee Guerrero,EDUARDO TECH2 Procedures Performed Procedure Location (Site) Vessel Name Ablation Procedure ICE CATHETER INSERT RA Atruim Equipment Time Java Performance Engineer Description Size Mfg Part Number Used/Scraped NEEDLE, TRANSSEPTAL NRG 98 08:39 [facility] [id number] Used C1 [employer]/ EP 08:39 KIT, TRANSDUCER / AFIB [id number] Used PACER [id number] CATHETER, TACTICATH ABLAT BUNDLE 08:39 BUNDLE-[employer]. KIMMY Used 65 BUNDLE *[id number] BUNDLE [id number] CATHETER, FR7 OPTIMA SPIRAL 08:39 BUNDLE-[employer]. KIMMY FR7 *[id number] Used BUNDLE BUNDLE [id number] 08:39 BUNDLE-[employer]. KIMMY CATHETER, JSN, QUAD BUNDLE FR 5 *[id number] Used BUNDLE [id number] 08:39 BUNDLE-[employer]. KIMMY CATHETER, JSN, QUAD BUNDLE FR 5 *[id number]- Used BUNDLE [id number] SET, COOL POINT TUBING 08:39 BUNDLE-[employer]. KIMMY *[id number]- Used BUNDLE BUNDLE SHEATH, FR8.5 STEERABLE SM 08:39 BUNDLE-ST. KIMMY 71CM [id number] Used 71CM BUNDLE COVER, TRANSDUCER CABLE 08:39 [employer] [id number] Used ACUNAV 08:39 CORDIS/PACER SHEATH, FR10 JUAN J 11CM FR 10 [id number] Used 08:39 CORDIS/PACER SHEATH, FR9 JUAN J 11CM FR 9 [id number] Used [id number] 08:39 [employer] PACK, CCL CUSTOM * Used *[id number] 08:39 MEDLINE PACER AVENDAÑO, LIMB * 3110 *[id number] Used [id number] 08:39 Mlog MEDICAL SHEATH, FR4.5 PRELUDE 11CM FR 4.5 Used [id number] 08:39 NAMIC TUBING, HIGH PRESSURE 48" 48" Used *[id number] 08:39 NAMIC TUBING, HIGH PRESSURE 48" 48" Used *[id number] 08:39 [employer] MEDICAL BLANKET,WARM AIR CCL * Used *[id number] 08:39 [employer]IM[employer] MEDICAL ELECTRODE KIT, BRE X SURFACE * [id number] Used [id number] 08:39 [employer] MEDICAL SHEATH, EPS, FR6 FAST CATH FR 6 Used *[id number] 08:39 [employer] MEDICAL SHEATH, EPS, FR7 FAST CATH FR 7 [id number] Used 000899 08:39 [employer] MEDICAL SHEATH, EPS, FR8 FAST CATH FR 8 Used *[id number] CATHETER, ACUNAV FR10 ICE [id number] 09:30 FRANCISCO FR 10 Used (FRANCISCO) *[id number] [facility] PAD, ELECTROSURGICAL 08:39 * [id number] *[id number] Used SURGICAL GROUNDING (BLUE) History: Current Medications Medication Dosage/Unit Route Frequency Last Date/Time Taken ASA ELIQUIS Statins (any) History: Allergies Allergy Reaction No Known Allergies Penicillins GI UPSET History: Risk Factors Family History of Hypertension Dyslipidemia Premature CAD Yes Yes Yes Chronic Lung Disease History: Symptoms/Diagnosis Selection Items Palpitations SOB History: Other Disease Selection Items COPD HTN Labs Hgb (g/dl) Hct (%) WBC (l/cumm) Platelets (thousands) 11.60-17.00 35.00-51.00 4.00-11.00 150.00-450.00 12.7 37.5 8.5 378 Glucose (mg/dl) BUN (mg/dl) Creatinine (mg/dl) BUN:Creatinine (1:x) 74.00-106.00 7.00-18.00 0.50-1.30 10.00-20.00 117 10 0.7 14.3 Na (meq/l) K (meq/l) 136.00-145.00 3.50-5.10 139 4 INR (PTT:PT) 0.90-1.10 0.9 Medication Medication Total Dose (Bolus/Oral) Medication Total Dosage/Unit 1% XYLOCAINE 40 mL HEPARIN 98875 units PROTAMINE 40 mg Medications (Bolus/Oral) Medication Time Given Dosage/Unit Administered By Reason 1% XYLOCAINE 02/01/2017 9:22:39 AM 20 mL Yayo Rosales As per physicians ve rbal order 20 mL 1% XYLOCAINE given in lab by Yayo Rosales in Left Groin via Subcutaneous. Ordered by Jeff Rosales. Reason: As per physicians verbal order. 1% XYLOCAINE 02/01/2017 9:28:06 AM 20 mL Yayo Rosales As per physicians ve rbal order 20 mL 1% XYLOCAINE given in lab by Yayo Rosales in Right Groin via Subcutaneous. Ordered by Lavell Rosales. Reason: As per physicians verbal order. HEPARIN 02/01/2017 9:33:00 AM 78614 units Anesthesia, CARDIOLOGY NURSE PRACTITIONER As per physicians verbal order 52461 units HEPARIN given in lab by Anesthesia, CARDIOLOGY NURSE PRACTITIONER in Right Antecubital via Peripheral IV. Ordered by Yayo Rosales. Reason: As per physicians verbal order. 02/01/2017 10:45:21 PROTAMINE 40 mg Anesthesia, CARDIOLOGY NURSE PRACTITIONER As per physicians verbal order AM 40 mg PROTAMINE given in lab by Anesthesia, CARDIOLOGY NURSE PRACTITIONER in Right Antecubital via Peripheral IV. Ordered by Yayo Woods. Reason: As per physicians verbal order. Medication (Drip) Medication Time Given Dosage/Unit Concentration/Unit Diluent (ml) Solution HEPARIN DRIP 02/01/2017 9:49:32 AM 1000 units/hr 47372 units 250 D5W 1000 units/hr HEPARIN DRIP given in lab by Anesthesia, CARDIOLOGY NURSE PRACTITIONER in Right Antecubital via Peripheral IV. P ump/Drip Flow = 10 ml/hr [place] [address] units in 250 ml. Ordered by Yayo Rosales. Reason: As per physicians verbal or carloz. 02/01/2017 10:31:09 ISUPREL 20 mcg/min 1 mg 250 NaCl .9 AM 20 mcg/min ISUPREL given in lab by Anesthesia, CARDIOLOGY NURSE PRACTITIONER in Right Antecubital via Peripheral IV. Pump/Drip Flow = 300 ml/hr using NaCl .9 with a concentration of 1 mg in 250 ml. Ordered by Yayo Rosales. IV Solutions 02/01/2017 8:41:13 AM 0 mL (IV) NaCl .9 IV Solutions given in lab by Sakshi Siddiqui BSRN in Left Forearm via Peripheral IV. Pump/Drip Flow = 50 ml/hr using NaCl .9. Ordered by Yayo Rosales. Reason: As per physicians verbal order. IV Solutions 02/01/2017 8:41:38 AM 0 mL (IV) NaCl .9 IV Solutions given in lab by Sakshi Siddiqui BSRN in Right Antecubital via Peripheral IV. Pump/Drip Flow = 50 ml/hr using NaCl .9. Ordered by Yayo Rosales. Reason: As per physicians verbal order. LEVAQUIN 02/01/2017 9:01:00 AM 100 mL/hr 500 100 NaCl .9 100 mL/hr LEVAQUIN given in lab by NISA Grimaldo in Right Antecubital via Peripheral IV. Pump/Drip Flow = 0 ml/hr using NaCl .9 with a concentration of 500 in 100 ml. Ordered by Yayo Rosales. Reason: As per physicians verbal order. Initial Case Assessment Cardiovascular HR NIBP Chest Pain 72 152/78 0 Edema Present Skin color Skin None Normal Warm Dry Neurological State Oriented to time-place- Alert Moves all extremities person Respiration - General Respiration Rate SpO2 (%) (B/min) 18 98 Final Case Assessment Cardiovascular HR NIBP Chest Pain 97 104/51 0 Edema Present Skin color Skin None Normal Warm Dry Neurological State Oriented to time-place- Alert Moves all extremities person Respiration - General Respiration Rate SpO2 (%) (B/min) 18 99 Chronological Log Time Study Chronological Log 8:19:01 Patient arrived via Bed. 8:19:03 Patient Name, D.O.B, / Armband Verified By R.N. 8:19:05 Consent signed by the physician and the patient and verified by the [facility] staff. 8:19:07 Pre-op and post- op instructions given; patient acknowledges understanding of instructions. Verbal Stimulation=~VERBAL~ Physical Stimulation=2 Airway=2 Respiration=2 TOTAL=10. (0=absent, 1=limited, 8:36:33 2=present) 8:39:23 Anesthesia at bedside. Assumes care of patient. Rickie PAULA 8:39:30 Presedation assessment performed by [facility] RN. 8:39:33 Immediate Presedation assesment performed by physician. 8:39:35 Patient has been NPO for More than 6Hrs. 8:39:38 Skin Breakdown- none 8:39:45 Patient Warmer Placed on the Table. 8:39:47 Disposable Defibrillator Pads Placed On Patient. 8:39:52 Cullen Prominences Protected 8:39:56 A # 22 IV was noted in the Forearm (left). Grade = ~GRADE~ 8:40:10 A # 20 IV was noted in the Antecubital (right). Grade = ~GRADE~ 8:40:20 History and physical on the chart or being dictated. Assessment: Initial Case, HR=72 BPM, KNCU=598/78 mmhg, Chest Pain=0, Edema=None, Color=Normal, S kin = Warm, Dry 8:40:27 Neurological: State=Alert, Ox3, MCCORMICK Respiration: Resp=18 B/min, SpO2=98 % 8:40:59 Table restraints applied according to hospital policy 8:41:02 Right groin prepped with 2% chlorhexidine, and draped after a 3 min. waiting time. 8:41:06 Left groin prepped with 2% chlorhexidine, and draped after a 3 min. waiting time. IV Solutions given in lab by Sakshi Siddiqui BSRN in Left Forearm via Peripheral IV. Pump/Drip Flow = 50 ml/hr using 8:41:13 NaCl .9. Ordered by Yayo Rosales. Reason: As per physicians verbal order. IV Solutions given in lab by Sakshi Siddiqui BSRN in Right Antecubital via Peripheral IV. Pump /Drip Flow = 50 ml/hr 8:41:38 using NaCl .9. Ordered by Yayo Rosales. Reason: As per physicians verbal order. 8:42:05 Reference ECG taken 100 mL/hr LEVAQUIN given in lab by Anesthesia, CARDIOLOGY NURSE PRACTITIONER in Right Antecubital via Peripheral IV. Pump /Drip Flow = 0 9:01:00 ml/hr using NaCl .9 with a concentration of 500 in 100 ml. Ordered by Yayo Rosales. Reason: As per physicians verbal order. 9:06:16 Indwelling uretheral catheter inserted by Madison. Clear yellow urine noted. 9:16:21 MD arrived. Time Out. Correct patient, procedure, procedure equipment, site and side verified with physician present. Time 9:19:00 concurred by MD, individual staff and CARDIOLOGY NURSE PRACTITIONER. Time Out #2 - Consents verified, patient in correct position, all results are labled and display ed, safety precautions 9:19:30 taken, antibiotics administered. Time out concurred by MD, individual staff and CARDIOLOGY NURSE PRACTITIONER in procedur e 9:19:45 Case Start 9:20:46 SANDRA begun at bedside. 9:22:26 SANDRA completed. 20 mL 1% XYLOCAINE given in lab by Yayo Rosales in Left Groin via Subcutaneous. Ordered by Yayo Perez. 9:22:39 Reason: As per physicians verbal order. 9:23:21 Vascular access was obtained in the Fem Vein (left). 9:23:33 Vascular access was obtained in the Fem Vein (left). 9:23:34 Vascular access was obtained in the Fem Vein (left). 9:23:34 Vascular access was obtained in the Fem Art (left). 9:24:15 A SHEATH, FR4.5 PRELUDE 11CM FR 4.5 was advanced into the Fem Art (left) using the Percutane ous technique. 9:24:41 A SHEATH, EPS, FR6 FAST CATH FR 6 was advanced into the Fem Vein (left) using the Percutaneo us technique. 9:24:59 A SHEATH, EPS, FR7 FAST CATH FR 7 was advanced into the Fem Vein (left) using the Percutaneo us technique. 9:25:11 A SHEATH, FR10 JUAN J 11CM FR 10 was advanced into the Fem Vein (left) using the Percutaneou s technique. 20 mL 1% XYLOCAINE given in lab by Yayo Rosales in Right Groin via Subcutaneous. Ordered by Yayo Hooks. 9:28:06 Reason: As per physicians verbal order. 9:28:25 Vascular access was obtained in the Fem Vein (right). 9:28:29 A SHEATH, EPS, FR8 FAST CATH FR 8 was advanced into the Fem Vein (right) using the Percutane ous technique. A CATHETER, JSN, QUAD BUNDLE FR 5 was advanced vis Fem Vein (left) and placed in the HIS. Placem ent was 9:29:08 visually confirmed under fluoroscopy. A CATHETER, JSN, QUAD BUNDLE FR 5 was advanced vis Fem Vein (left) and placed in the CS. Placeme nt was visually 9:29:25 confirmed under fluoroscopy. 9:29:53 CATHETER, ACUNAV FR10 ICE (FRANCISCO) FR 10 Was Postioned. A SHEATH, FR8.5 STEERABLE SM 71CM BUNDLE 71CM was exchanged in the Fem Vein (right). This was ne cessary in 9:30:28 order for catheter support. 9:30:57 [place] needle inserted. 9:31:08 Transseptal. 9:31:27 [place] needle removed. 44305 units HEPARIN given in lab by Anesthesia, CARDIOLOGY NURSE PRACTITIONER in Right Antecubital via Peripheral IV. Or dered by Bobby, 9:33:00 Yayo. Reason: As per physicians verbal order. 9:37:52 Mapping in progress. 9:38:00 Activated Clotting Time Drawn 9:46:10 Mapping catheter removed. A CATHETER, TACTICATH ABLAT 65 BUNDLE was advanced vis Fem Vein (right) and placed in the LA. P lacement was 9:46:27 visually confirmed under fluoroscopy. 9:46:45 Ablation in progress. 9:48:00 ACT (Normal Range 90-180) = 364 1000 units/hr HEPARIN DRIP given in lab by Anesthesia, CARDIOLOGY NURSE PRACTITIONER in Right Antecubital via Peripheral IV. Pump/Drip Flow = 9:49:32 10 ml/hr [place] [address] units in 250 ml. Ordered by Yayo Rosales. Reason: As per physicians verbal order. 10:01:32 Activated Clotting Time Drawn 10:08:39 ACT (Normal Range 90-180) = 372 20 mcg/min ISUPREL given in lab by Anesthesia, CARDIOLOGY NURSE PRACTITIONER in Right Antecubital via Peripheral IV. Pum p/Drip Flow = 300 10:31:09 ml/hr using NaCl .9 with a concentration of 1 mg in 250 ml. Ordered by Yayo Rosales. 10:40:00 Activated Clotting Time Drawn 10:42:53 Isuprel gtt stopped. 10:43:04 Ablation complete. 10:44:16 ACT (Normal Range 90-180) = [address] Rosales 10:44:42 40 mg PROTAMINE given in lab by Anesthesia, CARDIOLOGY NURSE PRACTITIONER in Right Antecubital via Peripheral IV. Ordere d by Yayo Rosales. 10:45:21 Reason: As per physicians verbal order. 10:45:50 Ablation procedure performed: AFIB. 10:46:23 EP Procedure was performed. Assessment: Final Case, HR=97 BPM, MJOE=022/51 mmhg, Chest Pain=0, Edema=None, Color=Normal, Sk in = Warm, Dry 10:46:52 Neurological: State=Alert, Ox3, MCCORMICK Respiration: Resp=18 B/min, SpO2=99 % 10:47:30 Sheath(s) left in place, will be removed in Holding Area Sutured by Lavelle CADENA to all veno us sheaths at kvo 10:47:48 Sterile dressing applied to site 10:47:51 No case complications noted. 10:47:56 Cine recording checked. 10:48:03 Bedside Report will be given. 10:48:05 PACU called. Spoke to Sallie 10:48:15 Defibrillator and ground pads removed. Skin intact. 10:50:00 Activated Clotting Time Drawn 10:52:00 ACT (Normal Range 90-180) = 130 10:59:13 Case End 11:10:00 Patient moved to stretcher and transported to PACU in stable condition. End Study - Contrast Media Used In Study Contrast Total Opened (mL) Total Used (mL) Total Wasted (mL) Unspecified 0 0 0 End Study - Maximum Contrast Load Max Contrast Load (mL) 604.2 End Study - Radiation Exposure Fluoro Time (minutes) 1.0 End Study - Patient Disposition Complications Transferred To Interventional Outcome No Telemetry Bed successful
[2017-02-01] MEDS ORDERED: DO NOT ADM ANY ANTICOAGULANT DRUGS PRN (11:21)
[2017-02-01] MEDS ORDERED: LIDOCAINE HCL 1% PF 5 ML AMPULE OTHER ONE (12:00)
[2017-02-01] MEDS ORDERED: BACITRACIN OINT 0.9 GM PKT TOP ONE (12:00)
[2017-02-01] MEDS ORDERED: ONDANSETRON HCL 4 MG/2 ML VIAL IV PUSH ONE (12:00)
[2017-02-01] MEDS ORDERED: SODIUM CHLOR 0.9% 250 ML INJ 250 ML IV PRN (12:00)
[2017-02-01] MEDS ORDERED: oxyCODONE/ACETAMINOPHEN 5 MG/325 MG TAB PO PRN ×2 (12:00)
[2017-02-01] MEDS ORDERED: GLYCOPYRROLATE 1 MG/5 ML SYRINGE IV PUSH ONE (12:00)
[2017-02-01] MEDS ORDERED: METOCLOPRAMIDE HCL 10 MG/2 ML VIAL IV PUSH PRN (12:00)
[2017-02-01] MEDS ORDERED: ONDANSETRON HCL 4 MG/2 ML VIAL IV PUSH PRN (12:00)
[2017-02-01] MEDS ORDERED: DEXAMETHASONE SOD PHOS 4 MG/ML VIAL IV ONE (12:00)
[2017-02-01] MEDS ORDERED: LIDOCAINE HCL 1% 50 ML VIAL INFIL PRN (12:00)
[2017-02-01] MEDS ORDERED: LORazepam 2 MG/ML VIAL IV PUSH PRN (12:00)
[2017-02-01] MEDS ORDERED: PROPOFOL 200 MG/20 ML AMP IV ONE (12:00)
[2017-02-01] MEDS ORDERED: ATROPINE SULFATE 1 MG/ML VIAL IV PUSH PRN (12:00)
[2017-02-01] MEDS ORDERED: NEOSTIGMINE 3 MG/3 ML SYR IV ONE (12:00)
[2017-02-01] MEDS ORDERED: PHENYLEPH/NS 1000 MCG/10 ML SYR IV ONE (12:00)
[2017-02-01] MEDS ORDERED: MIDAZOLAM HCL 2 MG/2 ML VIAL IV ONE (12:00)
[2017-02-01] MEDS ORDERED: ePHEDrine/NS 25 MG/5 ML SYR IV ONE (12:00)
[2017-02-01] MEDS ORDERED: ROCURONIUM INJ 50 MG/5 ML SYRINGE IV PUSH ONE (12:00)
--- NOTE | 2017-02-01 12:00 | PD.CARD ---
Atrial Fibrillation Ablation PROCEDURE DATE: Feb 01, 2017 PROCEDURES PERFORMED: 1. Electrophysiology study on Isuprel infusion 2. CS cannulation 3. 3-D mapping 4. Transseptal approach 5. Right and left heart catheterization 6. Intracardiac echo 7. Radiofrequency ablation of atrial fibrillation 8. Pulmonary vein isolation 9. Posterior wall ablation 10. Mitral line creation 11. Anterior wall ablation INDICATIONS FOR THE PROCEDURE Ms. Petersen is a 61-year-old female with Hx of atrial fibrillation referred for electrophysiology study and ablation. The patient is symptomatic and on anticoagulation. The risks, the nature and the benefits of the procedure were clearly stated to her. The risks include pneumothorax, cardiac perforation, stroke, need for open heart surgery and even . The patient understood and agreed to proceed. DESCRIPTION OF THE PROCEDURE IN DETAIL As written informed consent was obtained prior to esophageal echocardiogram, the patient was kept on the table where she was prepped and draped in the usual sterile fashion. Conscious sedation was initiated and maintained throughout the procedure by the anesthesiologist. Once sedation was verified, the right and left inguinal areas were anesthetized with 2% Xylocaine. Using modified Seldinger technique, the left femoral vein was cannulated on three occasions, three guidewires were advanced. Over the wire a 6, 7 and a 10-Somali Hemaquet were advanced. Then the left femoral artery was cannulated on one occasion, one guidewire was advanced. Over the wire a 4-Somali Hemaquet was advanced. Then the right femoral vein was cannulated on one occasion, one guidewire was advanced. Over the wire a 8-Somali Hemaquet was advanced. Then under fluoroscopic guidance through the 6 and 7-Somali Hemaquet, two 5-Somali Phill curved quadripolar electrophysiology catheters were advanced and placed around the His as well as coronary sinus. Basic interval was measured. The patient was in sinus rhythm.. Through the 10-Somali Hemaquet, a Cordis Cox AcuNav intracardiac echo catheter was advanced and placed at the right atrium. Multiple view was obtained. There is pericardial effusion, pulmonary vein was seen, atrial septal was visualized. Then the 8-Somali Hemaquet in the right femoral vein was exchanged for Agilis transseptal sheath that was placed all the way to the superior vena cava. Through the sheath a Amanda needle was advanced, then the sheath, the dilator and the needle were progressed until foci engaged. Once engaged, the needle was advanced. RF was delivered for 2 seconds. I was able to cross into the left atrium. Once the needle crossed, the dilator was advanced. Once the dilator crossed, the sheath was advanced. Once the sheath crossed, the dilator and the needle were removed. ICE indicated sheath is in good position. The patient already received 10,000 units of heparin. The goal is to keep an ACT around 350 during ablation. Then through the sheath a [employer] 20 pulse circumferential catheter was advanced. Using [employer] endocardial solution mapping system, a two-dimensional configuration of the left atrium was obtained. Points were taken at the left superior and inferior veins, right superior and inferior veins, mitral valve, and appendages. Then through the sheath a St. Rosales TactiCath 65cm 3.5mm irrigated tipped mapping and radiofrequency ablation catheter was advanced. Esophageal probe was placed temperature monitoring during ablation. When it increased to 0.5 degrees Celsius above baseline, I moved to a different area of the atrium. First I did isolate the left superior and inferior vein. I did make a swinom[place] around the veins. Posterior wall was ablated. A mitral line was created. Then the right superior and inferior veins were isolated. A swinomish was made around both veins. I did remap the atrium. There is no significant signal in the veins. At this point I decided to proceed with cardioversion. Pacing from the vein showed no conduction to the atrium. Isuprel infusion was initiated at 20 mcg for over 10 minutes. No tachyarrhythmia was induced, post Isuprel no tachyarrhythmia was induced. At that point the procedure was complete. All catheters were removed, atrial septal sheath was exchanged for 9-Somali Hemaquet , intracardiac echo showed no pericardial effusion. There is still good flow in the pulmonary vein. The patient is going to be transferred to the recovery room. No incident report. The patient tolerated the procedure. Blood loss was minimal. FINDINGS 1. Electrocardiogram: At baseline the patient was in sinus rhythm, post procedure EKG was unchanged. 2. Basic interval: Base cycle length was around 780. AH at 96 and HV at 46 milliseconds. 3. Tachyarrhythmia: Atrial fibrillation was mapped and ablated. The ablation was successful. CONCLUSION Successful electrophysiology study, mapping, radiofrequency ablation of atrial fibrillation, pulmonary vein isolation, posterior ablation, mitral line creation, anterior wall ablation, repeat electrophysiology on isuprel infusion. COMMENTS AND RECOMMENDATIONS The patient is going to be transferred to the telemetry unit. Will be observed and when stable can be discharged home. Yayo Rosales MD Feb 01, 2017 12:00
--- NOTE | 2017-02-01 16:24 | EKG ---
Date Performed: 02/01/2017 Time Performed: 11:38:32 PTAGE: 61 years EKG: Sinus rhythm SHORT TN INTERVAL RIGHT VENTRICULAR CONDUCTION DISTURBANCE SINCE PREVIOUS TRACING 12/08/2016, TN INTE RVAL SLIGHTLY SHORTER OTHERSWISE NO SIGNIFICANT CHANGE. ABNORMAL ECG PREVIOUS TRACING : 02/01/2017 07.11 DOCTOR: Jameel Klein Interpretating Date/Time 02/01/2017 16:23:26
--- NOTE | 2017-02-01 16:27 | EKG ---
Date Performed: 02/01/2017 Time Performed: 07:11:42 PTAGE: 61 years EKG: Sinus rhythm . Short NH interval RBBB Since previous tracing 02/01/2017, heart rate slightly faster and complete R BBB is new, previous EKG showed incomplete RBBB Abnormal ECG PREVIOUS TRACING : 12/08/2016 04.47 DOCTOR: Jameel Klein Interpretating Date/Time 02/01/2017 16:26:20
[2017-02-01] MEDS ORDERED: PRAVASTATIN SOD 20 MG TAB PO SCH (21:00)
[2017-02-01] MEDS ORDERED: OMEGA PO SCH (21:00)
[2017-02-01] MEDS ORDERED: [UNRECOGNIZED DRUG - OTHER] PO SCH (21:00)
[2017-02-01] MEDS: APIXABAN 5 MG TABLET PO SCH (21:00)
[2017-02-02] VITALS (12 sets, daily range): BP systolic 136–143; BP diastolic 80–81; PULSE 65–85; RESP 16; TEMP 98.2–98.7; O2SAT 94–95
[2017-02-02] MEDS ORDERED: LEVOTHYROXINE SODIUM 112 MCG TAB PO SCH (06:00)
[2017-02-02 06:49] LABS: PROTHROMBIN TIME - PATIENT 10.6 SEC (9.8-11.6)
--- NOTE | 2017-02-02 08:32 | PD.CARD.PN ---
Objective Medications Current Medications Medications (Trade) Dose Ordered Sig/Ashley Route Start Time Stop Time Status Last Admin Lactated Ringer's 1,000 ml @ 30 mls/hr Q24H PRN IV 02/01/17 07:00 02/04/17 06:59 Sodium Chloride 500 ml @ 30 mls/hr [id number] PRN IV 02/01/17 07:00 02/04/17 06:59 (Lopressor) 25 mg MANAGER [employer]INT PRN PO 02/01/17 07:00 02/04/17 06:59 (Betadine 5% Antisepsis Kit) 1 applic MANAGER [employer] PRN EACH NARE 02/01/17 07:00 02/04/17 06:59 (Chlorhexidine 2% Cloth) 3 pack [employer] PRN TOPICAL 02/01/17 07:00 02/04/17 06:59 (NovoLIN R INJ) See Protocol Table ... MANAGER [employer]INT PRN SQ 02/01/17 07:00 02/04/17 06:59 Sodium Chloride 500 ml @ 30 mls/hr [id number] IV 02/01/17 07:00 (Ativan) 1 mg [employer] SL 02/01/17 07:00 02/04/17 06:59 (Percocet 5-325 Mg) 1 tab Q4H PRN PO 02/01/17 12:00 (Percocet 5-325 Mg) 2 tab Q4H PRN PO 02/01/17 12:00 (Ativan Inj) 0.5 mg UNSCH PRN IV PUSH 02/01/17 12:00 02/02/17 11:59 (Atropine Inj) 0.5 mg UNSCH PRN IV PUSH 02/01/17 12:00 Sodium Chloride 250 ml @ 500 mls/hr ONCE PRN IV 02/01/17 12:00 02/02/17 11:59 (Reglan Inj) 10 mg Q4H PRN IV PUSH 02/01/17 12:00 (Zofran Inj) 4 mg Q4H PRN IV PUSH 02/01/17 12:00 (Xylocaine 1% Inj (50 ml)) 10 ml UNSCH PRN INFIL 02/01/17 12:00 02/02/17 11:59 (Eliquis) 5 mg BID PO 02/01/17 21:00 02/01/17 21:00 (Aspirin Chew) 81 mg EVERY OTHER DAY CHEW 02/03/17 09:00 (Synthroid) 112 mcg DAILY@0600 PO 02/02/17 06:00 (Spiriva Inh) 18 mcg DAILY INH 02/02/17 09:00 (Isoptin Sr) 180 mg DAILY PO 02/02/17 09:00 (Pravachol) 20 mg HS PO 02/01/17 21:00 02/01/17 21:00 Miscellaneous Information ALL NURSING DEPARTME... UNSCH PRN .XX 02/01/17 11:21 02/02/17 11:20 Vital Signs / I&O Vital Signs Date Time Temp Pulse Resp B/P (MAP) Pulse Ox O2 Delivery O2 Flow Rate FiO2 02/02/17 07:57 98.2 66 16 136/81 (99) 95 02/02/17 06:00 77 02/02/17 05:00 73 02/02/17 04:00 70 02/02/17 03:00 67 02/02/17 03:00 98.7 74 16 143/80 (101) 94 02/02/17 02:00 85 02/02/17 01:00 78 02/02/17 00:00 68 02/01/17 23:00 98.6 75 16 136/84 (101) 97 02/01/17 23:00 75 02/01/17 22:00 71 02/01/17 21:00 80 02/01/17 20:00 98.5 85 16 135/83 (100) 99 02/01/17 20:00 76 02/01/17 19:00 80 02/01/17 18:00 78 02/01/17 17:00 81 02/01/17 16:00 80 02/01/17 16:00 98.1 80 20 135/77 (96) 99 02/01/17 15:00 77 02/01/17 14:00 74 02/01/17 12:45 98.1 78 14 136/75 (95) 99 Nasal Cannula 2 02/01/17 12:30 74 14 128/74 (92) 99 Nasal Cannula 2 02/01/17 12:15 78 14 142/79 (100) 100 Nasal Cannula 2 02/01/17 12:00 84 14 134/81 (98) 100 Nasal Cannula 2 02/01/17 11:45 79 14 141/72 (95) 99 Nasal Cannula 3 02/01/17 11:30 81 14 141/73 (95) 100 Nasal Cannula 3 02/01/17 11:23 97.7 82 14 144/70 (94) 100 Nasal Cannula 4 I/O 02/01/17 02/01/17 02/01/17 02/02/17 02/02/17 02/02/17 07:00 15:00 23:00 07:00 15:00 23:00 Intake Total 140 ml 720 ml Output Total 250 ml 550 ml 1000 ml Balance -250 ml -410 ml -280 ml Intake Oral 140 ml 720 ml Output Urine Total 250 ml 550 ml 1000 ml # Bowel Movements 0 Physical Exam GENERAL: Well-nourished, well-developed patient. SKIN: Warm and dry. Groin sites soft without erythema, bleeding or bruising. HEAD: Normocephalic. EYES: No scleral icterus. No injection or drainage. NECK: Supple, trachea midline. No JVD or lymphadenopathy. CARDIOVASCULAR: Regular rate and rhythm without murmurs, gallops, or rubs. RESPIRATORY: Breath sounds equal bilaterally. No accessory muscle use. GASTROINTESTINAL: Abdomen soft, non-tender, nondistended. EXTREMITIES: No cyanosis, or edema. NEUROLOGICAL: Awake, alert, and oriented x 3. Non-focal. Laboratory Laboratory Tests Test 02/02/17 06:05 Prothrombin Time 10.6 SEC Prothromb Time International Ratio 1.0 RATIO Activated Partial Thromboplast Time 28.0 SEC Assessment and Plan Problem List: (1) Atrial fibrillation ICD Codes: I48.91 - Unspecified atrial fibrillation Status: Acute Plan: Continue eliquis, sinus rhythm on telemetry. Stable for discharge. (2) S/P ablation of atrial fibrillation ICD Codes: Z98.890 - Other specified postprocedural states; Z86.79 - Personal history of other diseases of the circulatory system Plan: Discharge home, follow-up with Dr. galindo in 3 weeks per my discussion with him. Continue eliquis. Problem Qualifiers (1) Atrial fibrillation: Qualified Codes: I48.0 - Paroxysmal atrial fibrillation Brandee Hay Feb 02, 2017 08:32
[2017-02-02] MEDS ORDERED: TIOTROPIUM BROMIDE 18 MCG INH INH SCH (09:00)
[2017-02-02] MEDS ORDERED: VERAPAMIL HCL 180 MG SUSTAINED RELEASE TAB PO SCH (09:00)
[2017-02-02] MEDS: APIXABAN 5 MG TABLET PO SCH (10:19)
--- NOTE | 2017-02-02 13:50 | EKG ---
Date Performed: 02/02/2017 Time Performed: 04:10:44 PTAGE: 61 years EKG: Sinus rhythm rSr'(V1) - probable normal variant Anterior T wave changes are nonspecific Borderline ECG PREVIOUS TRACING : 02/01/2017 11.38 DOCTOR: Donis De La Torre Interpretating Date/Time 02/02/2017 13:44:26
[2017-02-03] MEDS ORDERED: ASPIRIN 81 MG CHEW TAB CHEW SCH (09:00)
== END 2017-02-02 11:29 | disposition home or self-care (01) ==
LOC: HCAT 06:27 → HDIC 06:28 → HCIN 13:39 → HCAT 02-02 11:29
PROVIDERS: ATTEND Internal Medicine Interventional Cardiology
DX: I48.91 Unspecified atrial fibrillation (principal); I31.3 Pericardial effusion (noninflammatory); I10 Essential (primary) hypertension; E78.5 Hyperlipidemia, unspecified; F17.200 Nicotine dependence, unspecified, uncomplicated
CPT/HCPCS: 00537; 80048; 85002; 85025; 85610; 85730; 86850; 86900; 86901; 93005; 93312; 93320; 93325; 93613; 93623; 93656; 93662; C1730; C1731; C1732; C1759; C1766; C2630; J1100; J1644; J1956; J2250; J2370; J2405; J2710; J2720; J3010; J7050